=== PATIENT | female | born 1960 | race Caucasian/White ===

== ENCOUNTER 2018-07-25 18:42 | Emergency (ER) | payer SELFPAY ==
--- NOTE | 2018-07-25 19:14 | PDOC ---
Rapid Medical Evaluation Time Seen by Provider: 07/25/18 19:13 Medical Evaluation: 07/25/18 19:13 I have performed a brief in-person evaluation of this patient. The patient presents with a chief complaint of: Pertinent physical exam findings: I have ordered the following: The patient will proceed to the ED for further evaluation.
--- NOTE | 2018-07-25 19:18 | PDOC ---
Rapid Medical Evaluation Time Seen by Provider: 07/25/18 19:13 Medical Evaluation: 07/25/18 19:15 I have performed a brief in-person evaluation of this patient. The patient presents with a chief complaint of:ROCHA w/ n/v today. H/o HTN and has never been on meds per pt. States her BP at home today was 179/106. States she has had similar ROCHA in past when her BP is high per pt but that n/v is new. Pertinent physical exam findings:BP 154/94, appears ill I have ordered the following:labs The patient will proceed to the ED for further evaluation. Discharge Disposition - Diagnosis Headache Qualifiers: Headache type: unspecified Headache chronicity pattern: acute headache Intractability: not intractable Qualified Code(s): R51 - Headache - Referrals - Patient Instructions - Post Discharge Activity
[2018-07-25 19:19] VITALS: TEMP 97.8; BMI 27.9
[2018-07-25] MEDS ORDERED: METOCLOPRAMIDE HCL INJECTION 10 MG/2 ML VIAL IVPUSH ONE (19:49)
[2018-07-25] MEDS ORDERED: KETOROLAC TROMETHAMINE 30 MG/1 ML VIAL IVPUSH ONE ×2 (19:49→23:30)
[2018-07-25] MEDS ORDERED: ACETAMINOPHEN 1000 MG/100 ML VIAL (NON FORMULARY) IVPB ONE (20:12)
--- NOTE | 2018-07-25 20:20 | PDOC ---
History of Present Illness - General Chief Complaint: Blood Pressure Problem Stated Complaint: NAUSEA, VOMITING, HEADACHE Time Seen by Provider: 07/25/18 19:13 - History of Present Illness Initial Comments: Neda Schreiber is a 58yo woman with no relevant PMH (she reports occasional HTN but is not on any home medications) who presents with headache, nausea/ vomiting, and hypertension at home. Ms Schreiber states that she was feeling well this morning and went to work normally. Around noon, she started to have a throbbing headache. She states that the headache started in the b/l posterior neck and extended up around her entire head. She had associated nausea and one episode of vomiting in the afternoon. She also reports associated mild light and sound sensitivity "like you always do with a headache." She took two acetaminophen tablets (unknown regular vs extra strength) without improvement in her headache. She says that it actually worsened throughout the afternoon and evening. She also notes HTN to 179/106, but this had improved by the time she arrived to the ED. She states that she occasionally has high blood pressure, but it "isn't high enough" for medication. Prior to this afternoon, she has felt well. She denied any recent fever/shaking chills, vision changes, hearing changes, lightheadedness or vertigo, change in appetite, or stiff neck. She denies any sick contacts, nasal congestion, sore throat, or other cold symptoms. Past History - Past Medical History Allergies/Adverse Reactions: Allergies Allergy/AdvReac Type Severity Reaction Status Date / Time gluten Allergy Verified 07/25/18 19:16 MSG Allergy Uncoded 07/25/18 19:16 steri strips Allergy Uncoded 07/25/18 19:16 Home Medications: Ambulatory Orders NK [No Known Home Medication] 07/25/18 COPD: No - Surgical History Cardiac Surgery: Yes (asd 1978, 1986) - Suicide/Smoking/Psychosocial Hx Smoking History: Never smoked Review of Systems - Review of Systems Comments:: General: No fevers, no chills, no weight or appetite change, no malaise HEENT: No changes in vision, no changes in hearing, no congestion, no sore throat. +Headache CV: No chest pain, no palpitations, no LE edema Pulm: No SOB, no cough, no wheezing GI: +Nausea and vomiting. No change in bowel habits, no melena : No frequency, no urgency, no dysuria Musc: No back pain, no joint swelling, no recent injury Skin: No rash, no lesions, no erythema Endo: No excessive thirst, no heat/cold intolerance Heme: No unusual bruising or bleeding, no swollen glands Neuro: No syncope, no numbness/tingling, no focal weakness Vasc: No claudication Psych: No recent change in mood, no SI or HI *Physical Exam - Vital Signs Last Vital Signs Temp Pulse Resp BP Pulse Ox 97.8 F 59 L 16 159/97 100 07/25/18 19:17 07/25/18 19:17 07/25/18 19:17 07/25/18 19:17 07/25/18 19:17 - Physical Exam Comments: General: Uncomfortable but in no acute distress HEENT: PERRL, EOMI, MMM, voice normal, normal neck ROM, no LAD Cards: RRR, no murmur appreciated. Well healed mid-sternal scar Pulm: Comfortable on room air, clear to auscultation bilaterally Abd: Soft, nontender, nondistended Ext: Atraumatic. No LE edema. ROM intact. Strength 5/5 and equal bilaterally Vasc: Extremities WWP. Palpable radial and pedal pulses bilaterally Skin: Normal color, no rashes or lesions Neuro: A&Ox3, CN grossly intact, normal speech, motor/sensory grossly intact and symmetric. No focal deficits. Psych: Mood appropriate to situation ED Treatment Course - LABORATORY CBC & Chemistry Diagram: 07/25/18 20:25 07/25/18 20:25 Medical Decision Making - Medical Decision Making 07/25/18 20:49 Neda Schreiber is a 58yo woman with no relevant medical history who presents with throbbing 6/10 headache, nausea, one episode of NBNB vomiting, and hypertension since noon today. - No neurological deficits, no neck stiffness, no fever. Low concern for intracranial process including meningitis as a cause for headache - CBC, chemistry ordered - IV acetaminophen, IV reglan for headache and nausea - Will re-evaluate following meds 07/25/18 21:13 - On additional questioning by Dr Garcia, Ms Schreiber reports that this is more severe than her normal headaches. Addiitonally, overall her headaches have become more frequent and more severe. She has never had a neurological workup. CT head ordered to evaluate for space-occupying lesions, obvious infection, or other abnormalities that could be causing her headaches - 1L NS bolus ordered given vomiting today 07/25/18 23:38 - CT negative for acute intracranial pathology - 30mg IV toradol ordered for additional pain control. Ms Schreiber reports that her headache is currently down to a 2-3/10 - Plan to discharge home. Discussed return precautions with Ms Schreiber, and she reports understanding. - Should follow up with neurology for outpatient workup of her headaches. Discussed with Dr Garcia. Evelyn Jenkins PGY1 *DC/Admit/Observation/Transfer Diagnosis at time of Disposition: Headache Qualifiers: Headache type: unspecified Headache chronicity pattern: acute headache Intractability: not intractable Qualified Code(s): R51 - Headache - Discharge Dispostion Disposition: HOME Condition at time of disposition: Stable - Referrals Referrals: Min Zapata MD [Staff Physician] - - Patient Instructions Printed Discharge Instructions: DI for Headache Additional Instructions: Discharge Instructions: - You were seen in the ED for a headache along with nausea/vomiting and high blood pressure - You had blood tests, a urine test, and a CT scan of your head - none of these showed anything abnormal - Your symptoms were improved with IV tylenol, reglan (metaclopramide) and fluids. You were also given a pain medication called toradol. - Recommend pain control at home with naproxen (Aleve) two tablets twice daily as needed. If you have continued pain, you may take acetaminophen (Tylenol) two tablets every 6 hours if needed. - You have been referred to a neurologist for follow up and additional workup. Please schedule an appointment within the next 1-2 weeks - Recommend follow up within the next 1-2 weeks with your primary physician. - Seek immediate medical care at the nearest emergency room if you have focal neurological deficits such as numbness/weakness on one side of the body, changes in your speech, sudden changes in vision, or a drooping face. You should also seek attention if you have multiple episodes of vomiting (3 per hour ) with severe headache or if you have the most severe headache you have ever experienced that starts suddenly (within 30 minutes). - Post Discharge Activity Forms/Work/School Notes: Back to Work
[2018-07-25] MEDS ORDERED: METOCLOPRAMIDE HCL INJECTION 10 MG/2 ML VIAL ONE (20:45)
[2018-07-25] MEDS ORDERED: ACETAMINOPHEN INJECTION 100 ML IVPB ONE (20:45)
[2018-07-25 20:50] LABS: BASO % 1.3 % (0-2.0); EOS % 1.3 % (0-4.5); HEMOGLOBIN 13.3 GM/dL (10.7-15.3); LYMPH % 25.7 % (8-40); MCH 29.9 pg (25.7-33.7); MCHC 33.3 g/dl (32.0-36.0); MEAN CELL VOLUME 89.7 fl (80-96); MEAN PLT VOLUME 7.1 fl (7.5-11.1); MONO % 5.9 % (3.8-10.2); NEUT % 65.8 % (42.8-82.8); PLATELET COUNT 291 K/MM3 (134-434); RBC 4.46 M/mm3 (3.60-5.2); RDW 12.9 % (11.6-15.6); WHITE BLOOD COUNT 5.3 K/mm3 (4.0-10.0)
[2018-07-25] MEDS ORDERED: SODIUM CHLORIDE 0.9% 500 ML INFUS.BAG IV ONE (21:03)
[2018-07-25 21:30] LABS: ALBUMIN 3.8 g/dl (3.4-5.0); ALK PHOS 96 U/L (45-117); ANION GAP 7 MMOL/L (8-16); BILIRUBIN,TOTAL 0.4 mg/dL (0.2-1); BLOOD UREA NITROGEN 15 mg/dL (7-18); CALCIUM 8.6 mg/dL (8.5-10.1); CHLORIDE 102 mmol/L (98-107); CO2 31 mmol/L (21-32); CREATININE 0.6 mg/dL (0.55-1.3); GLUCOSE,RANDOM 106 mg/dL (74-106); POTASSIUM 3.7 mmol/L (3.5-5.1); SGOT/AST 16 U/L (15-37); SGPT/ALT 22 U/L (13-61); SODIUM 140 mmol/L (136-145); TOT PROT 7.1 g/dl (6.4-8.2)
[2018-07-25 22:48] LABS: URINE APPEARANCE CLOUDY; URINE BILIRUBIN NEGATIVE (<2.0 mg/dL); URINE COLOR LTYELLOW; URINE GLUCOSE (UA) NEGATIVE (NEGATIVE); URINE KETONE NEGATIVE (NEGATIVE); URINE LEUK ESTERASE NEGATIVE (NEGATIVE); URINE NITRITE NEGATIVE (NEGATIVE); URINE PROTEIN NEGATIVE (NEGATIVE); URINE UROBILINOGEN NEGATIVE mg/dL (0.2-1.0)
--- NOTE | 2018-07-25 22:51 | PDOC ---
Attending Attestation - Resident Resident Name: Evelyn Jenkins - ED Attending Attestation I have performed the following: I have examined & evaluated the patient, The case was reviewed & discussed with the resident, I agree w/resident's findings & plan, Exceptions are as noted - HPI HPI: 07/25/18 23:24 The patient is a 58 year old female, with a significant past medical history of occasional elevated blood pressure readings, who presents to the emergency department with a gradual onset headache. As per patient, her headache began this afternoon as a diffuse throbbing, 6/10 sensation with associated photophobia, phonophobia, nausea, and one episode of emesis. She took Tylenol for her symptoms, without relief. She notes similar headaches in the past that are associated with vomiting, about once a month. The patient tested her blood pressure at home and obtained a reading of 179/106, prompting her visit to the ER. She has never had a headache work up with a neurologist. She denies recent fevers, chills, or dizziness. She denies recent diarrhea or constipation. She denies recent dysuria, frequency, urgency or hematuria. She denies recent chest pain or shortness of breath. Denies focal weakness/ numbness. Allergies: Gluten, MSG, Steristrips Past surgical history: Unknown cardiac surgery (). Social history: Nonsmoker. Denies EtOH use and recreational drug use. - Physicial Exam PE: 07/25/18 23:26 "GENERAL: Awake, alert, and fully oriented, in no acute distress HEAD: No signs of trauma EYES: PERRLA, EOMI, sclera anicteric, conjunctiva clear ENT: Auricles normal inspection, hearing grossly normal, nares patent, oropharynx clear without exudates. Moist mucosa NECK: Normal ROM, supple, no lymphadenopathy, JVD, or masses LUNGS: Breath sounds equal, clear to auscultation bilaterally. No wheezes, and no crackles HEART: Regular rate and rhythm, normal S1 and S2, no murmurs, rubs or gallops ABDOMEN: Soft, nontender, normoactive bowel sounds. No guarding, no rebound. No masses EXTREMITIES: Normal range of motion, no edema. No clubbing or cyanosis. No cords , erythema, or tenderness BACK: No midline spinal tenderness in cervical/thoracic/lumbar region NEUROLOGICAL: Normal speech, cranial nerves intact, negative pronator drift, 5/ 5 strength in all 4 extremities, normal sensation to light touch in all 4 extremities, normal cerebellar exam, normal gait, normal reflexes and tone SKIN: Warm, Dry, normal turgor, no rashes or lesions noted." - Medical Decision Making 07/25/18 21:29 58yo F presents to the ED with gradual onset headache, similar to previous headaches but concern when BP at home was in 170s. In ED BP in 150s. HEadache consistent with a primary headache, no red flags such as sudden onset, thunderclap quality, stiff neck. Pt also neuro intact, with no meningismus. Pt notes headaches monthly, has never had neuro w/u. In light of vomiting and reported elevated BP to 170s at home, will get CTH to r/o mass occupying lesion. Will also tx with headache cocktail and reassess. 07/25/18 23:35 Labs wnl CTH neg Pt feels better with iv tylenol, fluids, reglan, toradol WIll refer to neuro well appearing, requests DC home I discussed the physical exam findings, ancillary test results and final diagnoses with the patient. I answered all of the patient's questions. The patient was satisfied with the care received and felt comfortable with the discharge plan and treatment plan. The patient will call their primary care physician within 24 hours to arrange follow-up and will return to the Emergency Department with any new, persistent or worsening symptoms.
[2018-07-26] MEDS ORDERED: KETOROLAC TROMETHAMINE 30 MG/1 ML VIAL ONE (00:07)
[2018-07-26 00:42] VITALS: BP 140/78; PULSE 82
== END 2018-07-26 00:05 | disposition home or self-care (01) ==
LOC: JER 18:42
PROC: 3E033GC Introduction of Other Therapeutic Substance into Peripheral Vein, Percutaneous Approach (ICD-10-PCS; principal; 2018-07-25)
PROC: 3E033NZ Introduction of Analgesics, Hypnotics, Sedatives into Peripheral Vein, Percutaneous Approach (ICD-10-PCS; 2018-07-25)
PROC: 3E0333Z Introduction of Anti-inflammatory into Peripheral Vein, Percutaneous Approach (ICD-10-PCS; 2018-07-25)
DX: R51 Headache (principal); I10 Essential (primary) hypertension
CPT/HCPCS: 36415; 70450-TC; 80053; 81003; 82550; 84484; 85025; 99282-25; J0131